=== PATIENT | female | born 1955 | race Caucasian/White ===

== ENCOUNTER 2016-07-29 09:23 | Day surgery (SDC) | payer MEDICAID ==
[~2016-07-29 09:23] MED LIST: AUBAGIO14 MG PO; DICLOFENAC 50MG50 MG PO; FLUTICASONE 50M16 GM; LISINOPRIL10 MG PO; LORATADINE 10MG10 M1 PO; OMEPRAZOLE40 MG PO; POTASSIUM CHLO10 ME3 PO; RANITIDINE HCL150 MG PO; TIZANIDINE HCL 44 MG PO; TRAMADOL 50MG T50 M1 PO
--- NOTE | 2016-07-29 10:53 | Operative Note ---
See Addendum Colonoscopy Procedure date: 07/29/16 Date of : 59 Procedure:Colonoscopy [facility] polypectomy Indications: screen Performing Provider: Fabián Mcwilliams Referrring Provider: Neena Buckley NP Sedation: Midazolam 7mg, fentanyl 250 mg, benadryl 50mg IV Procedure: Prior to the procedure, a history and physical exam was performed, and patient medications and allergies were reviewed. The risks and benefits of the procedure and the sedation options and risks were discussed with the patient. All questions were answered and informed consent was obtained. The patient was brought to the procedure room. Patient identification and proposed procedure were verified by the physician and the nurse. The patient was placed in a left lateral decubitus position and the scope was passed under direct vision. Throughout the procedure, the patient's blood pressure, pulse, and oxygen saturations were monitored continuously. The colonoscope was introduced through the anus and advanced to the terminal ileum with identification of the appendiceal orifice and ileocecal valve. The colonoscopy was performed without difficulty. The patient tolerated the procedure well. The quality of the bowel preparation was good. Findings: 1) 4mm sessile polyp splenic flexure removed with cold biopsy 2) two polyps Sigmoid colon 4-5 mm removed with cold snare 3) Diverticulosis sigmoid 4) Remainder normal Immediate complications: None EBL (ml): 2 Impression: Benign colon polyps Recommendations: f/u pathology repeat in 5 years at 4326
--- NOTE | 2016-07-29 10:53 | Operative Note ---
See Addendum Colonoscopy Procedure date: 07/29/16 Date of : 59 Procedure:Colonoscopy [facility] polypectomy Indications: screen Performing Provider: Fabián Mcwilliams Referrring Provider: Neena Buckley NP Sedation: Midazolam 7mg, fentanyl 250 mg, benadryl 50mg IV Procedure: Prior to the procedure, a history and physical exam was performed, and patient medications and allergies were reviewed. The risks and benefits of the procedure and the sedation options and risks were discussed with the patient. All questions were answered and informed consent was obtained. The patient was brought to the procedure room. Patient identification and proposed procedure were verified by the physician and the nurse. The patient was placed in a left lateral decubitus position and the scope was passed under direct vision. Throughout the procedure, the patient's blood pressure, pulse, and oxygen saturations were monitored continuously. The colonoscope was introduced through the anus and advanced to the terminal ileum with identification of the appendiceal orifice and ileocecal valve. The colonoscopy was performed without difficulty. The patient tolerated the procedure well. The quality of the bowel preparation was good. Findings: 1) 4mm sessile polyp splenic flexure removed with cold biopsy 2) two polyps Sigmoid colon 4-5 mm removed with cold snare 3) Diverticulosis sigmoid 4) Remainder normal Immediate complications: None EBL (ml): 2 Impression: Benign colon polyps Recommendations: f/u pathology repeat in 5 years at 3102
[2016-07-29 14:33] VITALS: BP 149/93
== END 2016-07-29 11:25 | disposition home or self-care (01) ==
LOC: SDC 09:23
PROVIDERS: Internal Medicine Gastroenterology
PROC: 0DBN8ZX Excision of Sigmoid Colon, Via Natural or Artificial Opening Endoscopic, Diagnostic (ICD-10-PCS; 2016-07-29)
PROC: 0DBL8ZX Excision of Transverse Colon, Via Natural or Artificial Opening Endoscopic, Diagnostic (ICD-10-PCS; principal; 2016-07-29 10:30)
DX: Z12.11 Encounter for screening for malignant neoplasm of colon (principal); D12.5 Benign neoplasm of sigmoid colon; K63.5 Polyp of colon; K57.30 Diverticulosis of large intestine without perforation or abscess without bleeding

== ENCOUNTER 2016-08-11 09:03 | Day surgery (SDC) | payer MEDICAID ==
[~2016-08-11] VITALS: Ht 160 cm; Wt 110.7 kg
[2016-08-11 09:50] VITALS: BP 133/89
[2016-08-11 10:06] VITALS: BP 133/89
[2016-08-11 10:07] VITALS: BP 133/88
--- NOTE | 2016-08-11 10:18 | Procedure Note ---
Procedure detail Date of procedure: 08/11/16 Anesthesiologist: Rahul patel CRNA Complications: None Pre-procedure diagnosis: Bilateral sacroiliitis. Post-procedure diagnosis: Same. Indications for procedure: This patient's pleasant 61-year-old obese white female that comes our pain clinic today for initial consultation regarding chronic low back pain she describes as constant, dull, aching. Patient also complained of bilateral hip pain. Patient rates her pain 7/10. She has extreme point tenderness over bilateral SI joints. Mrs. Ballard was a patient of the [facility] pain clinic. She was receiving intermittent injections in the past. However, is been over a year since she's had any type of injected therapy. She states she has had bilateral SI joint injections with significant improvement. I think this would be reasonable to repeat. Patient's lumbar MRI does show degenerative disc disease lumbar spine multiple levels. Spinal stenosis lumbar spine. Disc bulge L4-5 L5-S1. Patient does not complain of any radicular component in the legs. Patient presents today for bilateral SI joint injections. Procedure detail: Informed consent was obtained and the risks and benefits of the procedure were explained to the patient. The patient was taken to the procedure room and noninvasive monitors were placed including a noninvasive blood pressure cuff and pulse oximeter. The patient was placed prone on the procedure table. Both hips were cleansed using Betadine as a cleansing solution. C-arm fluoroscopy was used to view the right sacroiliac joint. The skin and subcutaneous tissues were anesthetized using lidocaine 1.5% and a 25-gauge needle. After this, a 22-gauge spinal needle was inserted under fluoroscopic guidance into the inferior aspect of the right sacroiliac joint. Omnipaque dye was injected and good spread was seen throughout the joint. After this, approximately 5 mL of bupivacaine, 0.25% and Depo-Medrol, 40 mg was incrementally injected into the right sacroiliac joint. We then moved to the left sacroiliac joint. The skin and subcutaneous tissues were anesthetized using lidocaine 1.5% and a 25-gauge needle. After this, a 22- gauge spinal needle was inserted under fluoroscopic guidance into the inferior aspect of the left sacroiliac joint. Omnipaque dye was injected and good spread was seen throughout the joint. After this, approximately 5 mL of bupivacaine, 0.25% and Depo-Medrol, 40 mg was incrementally injected into the left sacroiliac joint. The patient tolerated the procedure well with no complications. The patient was observed in the Pain Clinic and then was discharged home neurologically intact. Plan and disposition: Patient was reevaluated 10 minutes post procedure. Patient reports 90 percent improvement terms of her bilateral hip pain. She'll continue to follow up with us in the pain clinic for further evaluation. at 1011
[2016-08-11 10:20] VITALS: BP 139/91
[2016-08-11 10:48] LABS: BILIRUBIN, INDIRECT 0.32 mg/dL (0-0.9)
== END 2016-08-11 10:20 | disposition home or self-care (01) ==
LOC: PM 09:03
PROVIDERS: Psychiatry & Neurology Neurology
PROC: 3E0U33Z Introduction of Anti-inflammatory into Joints, Percutaneous Approach (ICD-10-PCS; principal; 2016-08-11)
PROC: 3E0U3BZ Introduction of Anesthetic Agent into Joints, Percutaneous Approach (ICD-10-PCS; 2016-08-11)
DX: M46.1 Sacroiliitis, not elsewhere classified (principal)
CPT/HCPCS: G0260; J1030

== ENCOUNTER 2017-01-31 09:16 | Emergency (ER) | payer MEDICAID ==
[~2017-01-31] VITALS: Ht 160 cm; Wt 103.0 kg
[~2017-01-31 09:16] MED LIST changes: +KEFLEX 500MG.500 MG PO; +MUPIROCIN2% TP
[2017-01-31] MEDS ORDERED: BACTRIM DS 8001 TA1 PO (10:16)
[2017-01-31] MEDS ORDERED: KEFLEX 500MG.500 MG PO (10:20)
--- NOTE | 2017-01-31 10:21 | Urgent Treatment Center Report ---
History of Present Issue Date/Time Seen by Provider 01/31/17 0956 Visit Reason Pt arrived:Walked Presenting Problem:PT C/O RT ARM BEING RED, SWOLLEN, AND WARM X4 DAYS. PT ALSO ADVISES THAT SHE THINKS SHE MAY HAVE SPRAINED HER LT HAMSTRING Location if Accident: Onset of symptoms date/time:/ or onset unknown for:MEDICAL HX UNKNOWN Have you (or family members/close friends) recently traveled outside the [place]? N If Yes, where/when: Have you had exposure to infectious disease within the past month? TB? Other? Specify: Patient state that she has been staying with family member upstairs States that she noticed that her right arm was turning red and felt warm States that she showed it to some medical authorization specialist and they told her she needed to come down and get it looked at and isidoro a line around it so she could monitor the spreading of the redness State that it began about 4 days ago and today her left buttock and hamstring was hurting so she came down to get checked States that she is currently undergoing treatment for a sprained left hamstring ALLERGIES Coded Allergies: No Known Allergies (09/25/16) Home Medications Active Scripts MUPIROCIN (Mupirocin 2% OINT) 1 SHANITA TP TID #1 TUBE Prov: 11/27/16 Reported Medications TRAMADOL HCL (Tramadol) 50 MG PO TID Loratadine (Loratadine 10MG Tablet) 10 MG PO DAILY Omeprazole (Omeprazole 40MG) 40 MG PO DAILY DICLOFENAC SODIUM (Diclofenac 50MG) 75 MG PO BID FLUTICASONE PROPIONATE (Fluticasone 50MCG Nasal [place]) 2 SPRAY NA DAILY TIZANIDINE HCL (Tizanidine Hcl 4 Mg Tablet) 6 MG PO QHS POTASSIUM CHL (Potassium Chloride) (Unknown Dose) PO PRN PRN . Teriflunomide (Aubagio) 14 MG PO DAILY History Medical History General CAD? No Angina: No NH: No Hypertension? Yes Hyperlipidemia? No CHF? No DVT? No PE? No COPD? No Asthma? No Anemia? No GERD? Yes Gastric ulcers? No GI Bleed? No Hernia? No Thyroid Problems? No Hypothyroidism? No CVA? No Seizures? No Diabetes? No Renal Insuffiency? No UTI? No Stones? No BPH? No GB Disease: No Nephritic Syndrome? No Asplenia? No Hepatitis? No Sickle Cell Disease? No Arthritis? Yes Migraines? No Cataracts? No Glaucoma? No MRSA? No HIV? No TB? No Anxiety? No Depression? No Cancer? No More? Yes Additional hx: CHRONIC BACK PAIN MS Immunization HX DT/Tetanus Unknown Surgical Hx Previous Surgery?Y HYSTERECTOMY FOOT Social History Smoking Hx Smoker: Never Smoker Tobacco: No Alcohol Alcohol: No Review of Systems All Other Systems Reviewed and Negative Skin other Comment Pain in left hamstring, redness, warmth and swelling to right forearm States that she had a bump there about a week or two ago that she picked at and busted Physical Exam Vital Signs Vital Signs Date Time Temp Pulse Resp B/P Pulse O2 O2 Flow FiO2 Ox Delivery Rate 01/31 1012 20 01/31 0933 98.1 102 20 148/99 98 General Appearance normal appearance, WD/WN, no apparent distress Respiratory Status Yes: trachea midline, chest symmetrical, non tender chest. No: respiratory distress. 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 No Results/Orders Current Medication Orders Sig/Keerthi Start time Last Medication Dose Route Stop Time Status Admin Ketorolac 60 MG ONCE ONE 01/31 1015 DC 01/31 Tromethamine IM 01/31 1016 1012 Trimethoprim/ 1 TABLET ONCE ONE 01/31 1015 DCr 01/31 Sulfamethoxazole PO 01/31 1016 1012 Ketorolac 0 .STK-MED ONE 01/31 1007 DC Tromethamine .ROUTE Trimethoprim/ 0 .STK-MED ONE 01/31 1007 DC Sulfamethoxazole PO Progress [place] Progress Notes Comment Patient educated on cellulitis, patient educated on why red area on forearm was marked with marker and advised to monitor arm after she begins to take antibiotics and if she is not noticing improvement go straight to ER or family doctor Departure Departure Time of Disposition 1014 Disposition DC Home or Self Care(routine) Clinical Impression Primary Impression: Cellulitis Qualifiers: Site of cellulitis: extremity Site of cellulitis of extremity: upper extremity Laterality: right Qualified Code: L03.113 - Cellulitis of right upper limb Condition STABLE Patient Instructions Cellulitis, DI for Cellulitis -- Adult Additional Instructions If no noticable improvement or decreasing redness by tomorrow go straight to ER or family doctor If you began to run fever or feeling ill go straight to ER Take medication as prescribed REturn if needed Discharge Counseling Counseled pt/family regarding diagnosis, medications/RX, home care, follow up needs Prescriptions Current Visit Scripts SULFAMETHOXAZOLE W/TRIMETHOPRI (Bactrim Ds Tab) 1 TABLET PO BID #20 TAB CEPHALEXIN (Keflex 500MG Capsule) 500 MG PO Q6H #40 CAP at 1026
[2017-01-31 10:32] VITALS: BP 148/99
== END 2017-01-31 10:32 | disposition home or self-care (01) ==
LOC: UTC 09:16
DX: L03.113 Cellulitis of right upper limb (principal); I10 Essential (primary) hypertension; Z79.51 Long term (current) use of inhaled steroids; Z79.899 Other long term (current) drug therapy

== ENCOUNTER 2017-02-05 19:15 | Emergency (ER) | payer MEDICAID ==
[~2017-02-05] VITALS: Ht 160 cm; Wt 107.5 kg
[~2017-02-05 19:15] MED LIST changes: +BACTRIM DS 8001 TA1 PO
[2017-02-05] MEDS ORDERED: BACTROBAN 2% C1 INCH EX (20:03)
--- NOTE | 2017-02-05 20:03 | Urgent Treatment Center Report ---
History of Present Issue Date/Time Seen by Provider 02/05/171943 Visit Reason Pt arrived:Walked Presenting Problem:PT STATES BEING SEEN ON WEDNESDAY FOR CELLULITIS TO R FOREARM. STATES SHE IS NOT GETTING ANY BETTER Location if Accident: Onset of symptoms date/time:02/01/17/ or onset unknown for:MEDICAL HX UNKNOWN Have you (or family members/close friends) recently traveled outside the [place]? N If Yes, where/when: Have you had exposure to infectious disease within the past month? TB? Other? Specify: Patient states that she was seen on Wednesday or Wednesday and started on antibiotics for Cellulitis in her right forearm State that she was worried and wanted to get it checked to make sure that it was getting better and that the antibiotic was working. States that it still is a little sore in her elbow but the redness in the arm has improved. ALLERGIES Coded Allergies: No Known Allergies (09/25/16) Home Medications Active Scripts SULFAMETHOXAZOLE W/TRIMETHOPRI (Bactrim Ds Tab) 1 TABLET PO BID #20 TAB Prov: 01/31/17 CEPHALEXIN (Keflex 500MG Capsule) 500 MG PO Q6H #40 CAP Prov: 01/31/17 MUPIROCIN (Mupirocin 2% OINT) 1 SHANITA TP TID #1 TUBE Prov: 11/27/16 Reported Medications TRAMADOL HCL (Tramadol) 50 MG PO TID Loratadine (Loratadine 10MG Tablet) 10 MG PO DAILY Omeprazole (Omeprazole 40MG) 40 MG PO DAILY DICLOFENAC SODIUM (Diclofenac 50MG) 75 MG PO BID FLUTICASONE PROPIONATE (Fluticasone 50MCG Nasal [place]) 2 SPRAY NA DAILY TIZANIDINE HCL (Tizanidine Hcl 4 Mg Tablet) 6 MG PO QHS POTASSIUM CHL (Potassium Chloride) (Unknown Dose) PO PRN PRN . Teriflunomide (Aubagio) 14 MG PO DAILY History Medical History General CAD? No Angina: No HI: No Hypertension? Yes Hyperlipidemia? No CHF? No DVT? No PE? No COPD? No Asthma? No Anemia? No GERD? Yes Gastric ulcers? No GI Bleed? No Hernia? No Thyroid Problems? No Hypothyroidism? No CVA? No Seizures? No Diabetes? No Renal Insuffiency? No UTI? No Stones? No BPH? No GB Disease: No Nephritic Syndrome? No Asplenia? No Hepatitis? No Sickle Cell Disease? No Arthritis? Yes Migraines? No Cataracts? No Glaucoma? No MRSA? No HIV? No TB? No Anxiety? No Depression? No Cancer? No More? Yes Additional hx: CHRONIC BACK PAIN MS Immunization HX DT/Tetanus Unknown Surgical Hx Previous Surgery?Y HYSTERECTOMY FOOT Social History Smoking Hx Smoker: Never Smoker Tobacco: No Alcohol Alcohol: No Review of Systems All Other Systems Reviewed and Negative Physical Exam Vital Signs Vital Signs Date Time Temp Pulse Resp B/P Pulse O2 O2 Flow FiO2 Ox Delivery Rate 02/05 1931 98.1 106 18 159/89 98 General Appearance normal appearance, WD/WN, no apparent distress Respiratory Status Yes: trachea midline, chest symmetrical, non tender chest. No: respiratory distress. 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 No Progress [facility] Progress Notes Comment Patient and medication discussed with Ned Abbasi agreed medication appeared to be working properly to take care of infection and infection was improving Departure Departure Time of Disposition 1999 Disposition DC Home or Self Care(routine) Clinical Impression Primary Impression: Cellulitis Qualifiers: Site of cellulitis: extremity Site of cellulitis of extremity: upper extremity Laterality: right Qualified Code: L03.113 - Cellulitis of right upper limb Condition STABLE Referrals LISA ABRAMS (Family) Patient Instructions DI for Cellulitis -- Adult Additional Instructions Warm compressess to area will help with pain and swelling Soak arm in warm water with epson salt will help to draw out the infection Continue to take medication as prescribed FOllow up with family doctor REturn if needed Discharge Counseling Counseled pt/family regarding diagnosis, medications/RX, home care, follow up needs Prescriptions Current Visit Scripts MUPIROCIN CALCIUM (Bactroban 2% Cream 15GM Tube) 1 INCH EX TID #1 TUBE Ref 1 at 2010
[2017-02-05 20:04] VITALS: BP 159/89
== END 2017-02-05 20:09 | disposition home or self-care (01) ==
LOC: UTC 19:15
DX: L03.113 Cellulitis of right upper limb (principal); I10 Essential (primary) hypertension; K21.9 Gastro-esophageal reflux disease without esophagitis; Z79.891 Long term (current) use of opiate analgesic; Z79.51 Long term (current) use of inhaled steroids; Z79.899 Other long term (current) drug therapy

== ENCOUNTER 2017-02-11 14:20 | Emergency (ER) | payer MEDICAID ==
[~2017-02-11] VITALS: Ht 162.6 cm; Wt 103.0 kg
[~2017-02-11 14:20] MED LIST changes: +BACTROBAN 2% C1 INCH EX
--- NOTE | 2017-02-11 15:04 | Urgent Treatment Center Report ---
History of Present Issue Date/Time Seen by Provider 02/11/17 1504 Visit Reason Pt arrived:Walked Presenting Problem:STATES RIGHT ARM PAIN AFTER FALLING ON IT A MONTH AGO Location if Accident: Onset of symptoms date/time:/ or onset unknown for:MEDICAL HX UNKNOWN Have you (or family members/close friends) recently traveled outside the [place]? N If Yes, where/when: Have you had exposure to infectious disease within the past month? TB? Other? Specify: Patient state that she was recently treated for staph in her arm and was on antibiotics and finished them and wants it looked at to see if she needs more antibiotics for it, also state that she needs to get another Tordol shot for her pain in her left hip area where she fell over a month ago ALLERGIES Coded Allergies: No Known Allergies (09/25/16) Home Medications Active Scripts SULFAMETHOXAZOLE W/TRIMETHOPRI (Bactrim Ds Tab) 1 TABLET PO BID #20 TAB Prov: 01/31/17 CEPHALEXIN (Keflex 500MG Capsule) 500 MG PO Q6H #40 CAP Prov: 01/31/17 MUPIROCIN CALCIUM (Bactroban 2% Cream 15GM Tube) 1 INCH EX TID #1 TUBE Ref 1 Prov: 02/05/17 MUPIROCIN (Mupirocin 2% OINT) 1 SHANITA TP TID #1 TUBE Prov: 11/27/16 Reported Medications TRAMADOL HCL (Tramadol) 50 MG PO TID Loratadine (Loratadine 10MG Tablet) 10 MG PO DAILY Omeprazole (Omeprazole 40MG) 40 MG PO DAILY DICLOFENAC SODIUM (Diclofenac 50MG) 75 MG PO BID FLUTICASONE PROPIONATE (Fluticasone 50MCG Nasal [place]) 2 SPRAY NA DAILY TIZANIDINE HCL (Tizanidine Hcl 4 Mg Tablet) 6 MG PO QHS POTASSIUM CHL (Potassium Chloride) (Unknown Dose) PO PRN PRN . Teriflunomide (Aubagio) 14 MG PO DAILY History Medical History General CAD? No Angina: No ID: No Hypertension? Yes Hyperlipidemia? No CHF? No DVT? No PE? No COPD? No Asthma? No Anemia? No GERD? Yes Gastric ulcers? No GI Bleed? No Hernia? No Thyroid Problems? No Hypothyroidism? No CVA? No Seizures? No Diabetes? No Renal Insuffiency? No UTI? No Stones? No BPH? No GB Disease: No Nephritic Syndrome? No Asplenia? No Hepatitis? No Sickle Cell Disease? No Arthritis? Yes Migraines? No Cataracts? No Glaucoma? No MRSA? No HIV? No TB? No Anxiety? No Depression? No Cancer? No More? Yes Additional hx: CHRONIC BACK PAIN MS Immunization HX DT/Tetanus Unknown Surgical Hx Previous Surgery?Y HYSTERECTOMY FOOT Social History Smoking Hx Smoker: Never Smoker Tobacco: No Alcohol Alcohol: No Review of Systems All Other Systems Reviewed and Negative Physical Exam Vital Signs Vital Signs Date Time Temp Pulse Resp B/P Pulse O2 O2 Flow FiO2 Ox Delivery Rate 02/11 1503 18 02/11 1428 97.9 91 18 133/71 96 General Appearance normal appearance, WD/WN, no apparent distress Respiratory Status Yes: trachea midline, chest symmetrical, non tender chest. No: respiratory distress. 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 No Results/Orders Current Medication Orders Sig/Keerthi Start time Last Medication Dose Route Stop Time Status Admin Ketorolac 60 MG ONCE ONE 02/11 1500 DC 02/11 Tromethamine IM 02/11 1501 1503 Departure Departure Time of Disposition 1516 Disposition DC Home or Self Care(routine) Clinical Impression Primary Impression: Hip pain Qualifiers: Laterality: left Qualified Code: M25.552 - Pain in left hip Condition STABLE Referrals LISA ABRAMS (Family) Patient Instructions DI for Hip Pain Additional Instructions Call family doctor and make appointment for Wednesday Return if needed Over the counter Motrin or Tylneol as needed for pain Discharge Counseling Counseled pt/family regarding diagnosis, medications/RX, home care, follow up needs at 1518
[2017-02-11 15:19] VITALS: BP 133/71
== END 2017-02-11 15:23 | disposition home or self-care (01) ==
LOC: UTC 14:20
DX: M25.551 Pain in right hip (principal); Z79.899 Other long term (current) drug therapy; I10 Essential (primary) hypertension; K21.9 Gastro-esophageal reflux disease without esophagitis

== ENCOUNTER → 2017-04-06 | Day surgery (SDC) | payer MEDICAID ==
[~2017-04-06] VITALS: Ht 162.6 cm; Wt 108.9 kg
[~2017-04-06] MED LIST changes: +CELEXA20 MG PO; +LISINOPRIL 10MG10 MG PO; +LOSARTAN POTAS100 MG PO
[2017-04-06 13:17] VITALS: BP 136/76
[2017-04-06 13:34] VITALS: BP 136/76
[2017-04-06 13:35] VITALS: BP 135/80
--- NOTE | 2017-04-06 13:45 | Procedure Note ---
Procedure detail Date of procedure: 04/06/17 Anesthesiologist: Rahul Romano Complications: None Pre-procedure diagnosis: Bilateral sacroiliitis Post-procedure diagnosis: Same Indications for procedure: Very pleasant 61-year-old white female that we've been treating for quite some time for chronic bilateral hip pain with bilateral SI joint injections from time to time. She presents her procedure clinic today for bilateral SI joint injections. She has extreme point tenderness over bilateral SI joints. Procedure detail: Informed consent was obtained and the risks and benefits of the procedure were explained to the patient. The patient was taken to the procedure room and noninvasive monitors were placed including a noninvasive blood pressure cuff and pulse oximeter. The patient was placed prone on the procedure table. Both hips were cleansed using Betadine as a cleansing solution. C-arm fluoroscopy was used to view the right sacroiliac joint. The skin and subcutaneous tissues were anesthetized using lidocaine 1.5% and a 25-gauge needle. After this, a 22-gauge spinal needle was inserted under fluoroscopic guidance into the inferior aspect of the right sacroiliac joint. Omnipaque dye was injected and good spread was seen throughout the joint. After this, approximately 5 mL of bupivacaine, 0.25% and Depo-Medrol, 40 mg was incrementally injected into the right sacroiliac joint. We then moved to the left sacroiliac joint. The skin and subcutaneous tissues were anesthetized using lidocaine 1.5% and a 25-gauge needle. After this, a 22- gauge spinal needle was inserted under fluoroscopic guidance into the inferior aspect of the left sacroiliac joint. Omnipaque dye was injected and good spread was seen throughout the joint. After this, approximately 5 mL of bupivacaine, 0.25% and Depo-Medrol, 40 mg was incrementally injected into the left sacroiliac joint. The patient tolerated the procedure well with no complications. The patient was observed in the Pain Clinic and then was discharged home neurologically intact. Plan and disposition: Patient was reevaluated 10 minutes post procedure. She's doing very well. She'll return to see us in the pain clinic further evaluation. at 3183
[2017-04-06 14:00] VITALS: BP 133/81
== END ==
LOC: PM 13:00
PROC: 3E0U33Z Introduction of Anti-inflammatory into Joints, Percutaneous Approach (ICD-10-PCS; principal; 2017-04-06)
PROC: 3E0U3BZ Introduction of Anesthetic Agent into Joints, Percutaneous Approach (ICD-10-PCS; 2017-04-06)
DX: M46.1 Sacroiliitis, not elsewhere classified (principal)
CPT/HCPCS: J1030; Q9966